=== PATIENT | male | born 1995 | race Caucasian/White ===

== ENCOUNTER 2018-07-17 14:51 | Emergency (ER) | payer SELFPAY ==
[~2018-07-17] VITALS: Ht 180.3 cm; Wt 56.7 kg
[2018-07-17 14:51] VITALS: BP_SYST 132
[2018-07-17] MEDS ORDERED: KETOROLAC TROMETHAMINE 60 MG/2 ML VIAL IM ONE (15:30)
[2018-07-17] MEDS ORDERED: PROCHLORPERAZINE EDISYLATE 10 MG/2 ML VIAL IM ONE (15:30)
[2018-07-17 15:54] LABS: LYMPHOCYTES # (AUTO) 2.7 K/uL (1.0-5.5); MEAN CORPUSCULAR HEMOGLOBIN 31 pg (27-31); MONOCYTES # (AUTO) 0.6 K/uL (0.0-1.0)
[2018-07-17 16:03] LABS: BASOPHILS # (AUTO) 0.2 K/uL (0.0-0.2); EOSINOPHILS % (AUTO) 0.5 % (0.0-4.0); HEMATOCRIT 44.6 % (36-54); HEMOGLOBIN 14.5 g/dL (14.0-18.0); LYMPHOCYTES % (AUTO) 27.6 % (20.5-51.5); MEAN CORPUSCULAR HGB CONC 33 % (32-36); MEAN CORPUSCULAR VOLUME 96 fL (79.0-98.0); MONOCYTES % (AUTO) 6.1 % (1.7-9.3); NEUTROPHILS # (AUTO) 6.2 K/uL (1.8-7.7); NEUTROPHILS % (AUTO) 63.8 % (40.0-70.0); PLATELET COUNT (AUTO) 295 K/uL (130-430); RED BLOOD CELL COUNT(AUTO) 4.65 MIL/uL (4.2-6.2); RED CELL DISTRIBUTION WIDTH 12.3 % (9.0-15.0); WHITE BLOOD COUNT (AUTO) 9.7 K/uL (4.8-10.8)
[2018-07-17 16:12] LABS: CALCIUM 9.4 mg/dL (8.4-11.0); CREATININE 0.79 mg/dL (0.55-1.30); POTASSIUM 3.4 mmol/L (3.5-5.1)
[2018-07-17 16:17] LABS: TOTAL BILIRUBIN 1.1 mg/dL (0.0-1.0)
[2018-07-17] MEDS ORDERED: fentaNYL CITRATE/PF 100 MCG/2 ML AMP IM ONE (16:45)
[2018-07-17 17:08] VITALS: BP_SYST 125
== END 2018-07-17 17:08 | disposition home or self-care (01) ==
LOC: SED 14:51
DX: R10.84 Generalized abdominal pain (principal); R03.0 Elevated blood-pressure reading, without diagnosis of hypertension; F41.9 Anxiety disorder, unspecified; F31.9 Bipolar disorder, unspecified; Z88.6 Allergy status to analgesic agent; Z90.89 Acquired absence of other organs
CPT/HCPCS: 36415; 74021; 80053; 83690; 85025; 96372; 99285; J0780; J1885; J3010